=== PATIENT | male | born 1955 | race Caucasian/White ===

== ENCOUNTER 2024-11-08 13:13 | Outpatient (CLI) | payer MEDICARE, OTHER, SELFPAY ==
--- NOTE | 2024-11-08 13:19 | XR_ITS ---
WS: [email or web address] Exam: XR knee LT 3V* [id number] Date/Time of Exam: 11/08/2024 1:19 PM Reason For Exam: bilateral knee pain No fracture. The joint compartments are preserved. No joint effusion. Soft tissues are unremarkable. XR/XR knee LT 3V* [id number] IMPRESSION: 1. Negative LEFT knee.
--- NOTE | 2024-11-08 13:19 | XR_ITS ---
WS: [email or web address] Exam: XR ankle LT min 3V* [id number] Date/Time of Exam: 11/08/2024 1:19 PM Reason For Exam: left ankle pain No acute fracture. The ankle mortise is equidistant. Normal soft tissues. XR/XR ankle LT min 3V* [id number] IMPRESSION: 1. Negative LEFT ankle.
--- NOTE | 2024-11-08 13:19 | XR_ITS ---
WS: [email or web address] Exam: XR knee RT 3V* [id number] Date/Time of Exam: 11/08/2024 1:19 PM Reason For Exam: bilateral knee pain No fracture. The joint compartments are preserved. No joint effusion. Normal soft tissues. XR/XR knee RT 3V* [id number] IMPRESSION: 1. Normal RIGHT knee.
--- NOTE | 2024-11-08 13:19 | XR_ITS ---
WS: [email or web address] Exam: XR ankle RT min 3V* [id number] Date/Time of Exam: 11/08/2024 1:19 PM Reason For Exam: right ankle pain There is advanced degenerative change of the ankle mortise with [id number] articulation. There is extensive subcortical cyst formation in the talar dome. No fracture. Normal soft tissues. Marked DJD at the posterior subtalar joint. IMPRESSION1. 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
== END 2024-11-08 13:14 | disposition home or self-care (01) ==
LOC: RAD 13:15
PROVIDERS: PCP Family Medicine; Visit Provider Family Medicine
DX: M19.071 Primary osteoarthritis, right ankle and foot (principal); M85.671 Other cyst of bone, right ankle and foot; M25.572 Pain in left ankle and joints of left foot; M25.561 Pain in right knee; M25.562 Pain in left knee
CPT/HCPCS: 73562; 73610; 80053; 83036; 85025; 85651; 86038; 86140; 86200; 86431

== ENCOUNTER → 2024-12-24 08:44 | Outpatient (BNVA) | payer MEDICARE, OTHER, SELFPAY | PROVIDERS: PCP Family Medicine; Visit Provider Podiatrist Foot & Ankle Surgery | DX: M19.171 Post-traumatic osteoarthritis, right ankle and foot (principal) | CPT/HCPCS: 99204 ==

== ENCOUNTER 2025-02-06 02:34 | Emergency (ER) | payer MEDICARE, OTHER, SELFPAY ==
--- NOTE | 2025-02-06 02:36 | XRR_ITS ---
PROCEDURE INFORMATION: Exam: XR Chest Exam date and time: 02/06/2025 3:00 AM Age: 69 years old Clinical indication: Shortness of breath; Additional info: SOB TECHNIQUE: Imaging protocol: Radiologic exam of the chest. Views: 1 view. COMPARISON: No relevant prior studies available. FINDINGS: Lungs: Unremarkable. No consolidation. Pleural spaces: Unremarkable. No pleural effusion. No pneumothorax. Heart/Mediastinum: Unremarkable. No cardiomegaly. Vasculature: Atherosclerotic changes of the aorta are noted. Bones/joints: Unremarkable. XR/XR chest 1V portable [id number] IMPRESSION: No acute findings.
[2025-02-06 02:39] VITALS: BP 127/108; PULSE 71; RESP 20; TEMP 36.3; O2SAT 96; BMI 26.4
--- OUTSIDE RECORDS SUMMARY | 2025-02-06 02:41 | XMS_ITS | Encounter Summary ---
Author Organization [facility] Address [address] [place] [address] Care Team Providers Care Pan Washer Hand Name Role Phone Terence Xiao DO Primary Care Provider +1- [phone] Encounter Details Date Type Department Care Team (Latest Contact Info) Description 08/03/2000 Outpatient [facility] Dermatology- [facility] [address] [place] [id number] Hosea Muro MD NO ADDRESS ON FILE Actinic keratosis (Primary Dx); Other psoriasis Social History Tobacco Use Types Packs/Day Years Used Date Smoking Tobacco: Never Assessed Sex and Gender Information Value Date Recorded Sex Assigned at Not on file 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
--- OUTSIDE RECORDS SUMMARY | 2025-02-06 02:41 | XMS_ITS | Clinical Summary ---
Author Organization [facility] Address [address] [place] [address] Care Team Providers Care Cream Dumper Name Role Phone Terence Xiao DO Primary Care Provider +1- [phone] Medications amLODIPine (NORVASC) 10 mg tablet Take 10 mg by mouth daily. Active valsartan-hydro CHLOROthiazide (DIOVAN HCT) 320-25 mg tablet Take 1 Tablet by mouth daily. Active ECHINACEA ORAL Take by mouth. Active OTHER Provider please include Medication name, dose, route and frequency . Active OTHER Provider please include Medication name, dose, route and frequency . Active OTHER Prednisolone 1%, Gatifloxacin 0.5%, Ketorolac 0.5%. Start 3 days before surgery 1 drop 3 times a day in the surgical eye for 24 days.. 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, stage 4 02/22/2017 Overview (04/04/2017): Pars plana vitrectomy with Internal Limiting Membrane peel and C3F8 gas: 04/04/2017 Early stage nonexudative age -related macular degeneration of both eyes 02/22/2017 Social History Tobacco Use Types Packs/Day Years Used Date Smoking Tobacco: Former Cigarettes Smokeless Tobacco: Never Alcohol Use Standard Drinks/Week Comments Not Asked 2 (1 standard drink = 0.6 oz pur e alcohol) Sex and Gender Information Value Date Recorded Sex Assigned at Not on file 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 Gender Identity Not on file Sexual Orientation Not on file Last Filed Vital Signs Vital Sign Reading Time Taken Comments Blood Pressure 130/82 01/16/2018 1:49 PM CDT Pulse 77 01/16/2018 12:08 PM CDT Temperature 36.7 C (98 F) 01/16/2018 12:08 PM CDT Respiratory Rate 16 01/16/2018 12:08 PM CDT Oxygen Saturation 100% 01/16/2018 12:08 PM CDT Inhaled Oxygen Concentration - - Weight 95.3 kg (210 lb) 01/16/2018 1:49 PM CDT Height 180.3 cm (5' 11 ) 01/16/2018 1:49 PM CDT Body Mass Index 29.29 01/16/2018 1:49 PM CDT Plan of Treatment Health Maintenance Due Date Last Done Comments DTAP/TDAP/TD VACCINES (1 - Tdap) 1972 COLORECTAL SCREENING 1998 Colorectal Cancer Screening 1998 FIT-DNA Q 3 years 1998 FIT/FOBT Q 1 year 1998 Flex Sig/CT Colonography Q 5 years 1998 PNEUMOCOCCAL VACCINE 50+ YEARS (1 of 1 - PCV) 11/03/19 04 ZOSTER VACCINE (1 of 2) 11/03/2003 INFLUENZA VACCINE (#1) 2024 RSV VACCINE (60+ or ) (1 - 1-dose 75+ series) 2028 Medical Devices Implanted Type Area Kickboxing Instructor Device Identifier Shelf Expiration Date Model / Serial / Lot Lens Io Tecnis 4.5cyl [id number] 08.5 - [id number] Implanted:Qty: 1 on 01/16/2018 by Daniel Caal MD at [facility] Right: Eye [employer] 07/14/2021 [id number] 08.5 / [id number] / Insurance [employer] Advance Directives For more information, please contact: [phone] * Full Code (Latest Code Status on File) Date Activated Date Inactivated Comments 01/16/2018 10:53 AM 01/16/2018 2:20 PM Care Teams Cream Dumper Relationship Specialty Start Date End Date Terence Xiao DO [address] [place] [address] PCP - General Family Practice 03/28/17
--- OUTSIDE RECORDS SUMMARY | 2025-02-06 02:41 | XMS_ITS | Clinical Summary ---
Author Organization [facility] Address [address] [place]: [place] [address] Care Team Providers Care Fiber Optic Assembly Worker Name Role Phone Terence Xiao DO Primary Care Provider +1- [phone] Medications OTHER Prednisolone 1%, Gatifloxacin 0.5%, Ketorolac 0.5%. Start 3 days before surgery 1 drop 3 times a day in the surgical eye for 24 days.. 3.5 mL 1 8 Active ECHINACEA ORAL Take by mouth. 7 Active valsartan-hydro CHLOROthiazide (DIOVAN HCT) 320-25 mg tablet Take 1 Tablet by mouth daily. 7 Active amLODIPine (NORVASC) 10 mg tablet Take 10 mg by mouth daily. 7 Active OTHER Provider please include Medication name, dose, route and frequency . 7 Active OTHER Provider please include Medication name, dose, route and frequency . 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 Age-related nuclear cataract, bilateral 12/12/19 18 Full thickness macular hole of right eye, stage 4 02/22/2017 Overview (09/10/2020): Pars plana vitrectomy with Internal Limiting Membrane peel and C3F8 gas: 04/04/2017 Early stage nonexudative age -related macular degeneration of both eyes 02/22/2017 Social History Tobacco Use Types Packs/Day Years Used Date Smoking Tobacco: Former Smokeless Tobacco: Never Alcohol Use Standard Drinks/Week Comments Not Asked 2 (1 standard drink = 0.6 oz pur e alcohol) Sex and Gender Information Value Date Recorded Sex Assigned at Not on file 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 Gender Identity Not on file Sexual Orientation Not on file Last Filed Vital Signs Vital Sign Reading Time Taken Comments Blood Pressure 130/82 01/16/2018 1:49 PM CDT Pulse 77 01/16/2018 12:08 PM CDT Temperature 36.7 C (98 F) 01/16/2018 12:08 PM CDT Respiratory Rate 16 01/16/2018 12:08 PM CDT Oxygen Saturation - - Inhaled Oxygen Concentration - - Weight 95.3 [...] series) 2028 Medical Devices Implanted Type Area Assistant Head Cashier Device Identifier Shelf Expiration Date Model / Serial / Lot Lens Io Tecnis 4.5cyl [id number] 08.5 - [id number] Implanted:Qty: 1 on 01/16/2018 by Daniel Caal MD Eye Right: Eye [employer] 07/14/2021 [id number] 08.5 / [id number] / Care Teams Fiber Optic Assembly Worker Relationship Specialty Start Date End Date Terence Xiao DO [address] [place] [id number] PCP - General Family Practice 03/28/17
--- NOTE | 2025-02-06 02:44 | CTR_ITS ---
PROCEDURE INFORMATION: Exam: CT Head Without Contrast Exam date and time: 02/06/2025 2:55 AM Age: 69 years old Clinical indication: Injury or trauma; Fall; Blunt trauma (contusions or hematomas) TECHNIQUE: Imaging protocol: Computed tomography of the head without contrast. Radiation optimization: All CT scans at this facility use at least one of these dose optimization techniques: automated exposure control; mA and/or kV adjustment per patient size (includes targeted exams where dose is matched to clinical indication); or iterative reconstruction. COMPARISON: No relevant prior studies available. RADIATION DOSE METRICS: Total DLP (mGy-cm): 1276.78 FINDINGS: Brain: Ill-defined hypoattenuation in the right basal ganglia (series 7, image 32). Focal hypoattenuation within the left cerebral peduncle (series 7 image 23). Otherwise, guillen-white differentiation is preserved. No acute intracranial hemorrhage. Cerebral volume loss is noted, likely age related. Cerebral ventricles: Ex vacuo ventricular dilatation is noted. Paranasal sinuses: Visualized sinuses are unremarkable. No fluid levels. Mastoid air cells: Visualized mastoid air cells are well aerated. Orbital cavities: Bilateral cataract extractions are noted. Bones: Unremarkable. No acute fracture. Soft tissues: Unremarkable. CT/CT head wo con* [id number] IMPRESSION: 1. 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 Focal hypoattenuation in the left cerebral peduncle, which may be artifactual or ambulatory services representative of age-indeterminate, chronic appearing infarct. 2. No acute intracranial hemorrhage.
--- NOTE | 2025-02-06 02:44 | ECG_ITS ---
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1955 Requested By: Herrera Engel Order Number: [id number] Reading MD: EMELY MCNEAL Measurements Intervals [place] Rate: 67 P: 66 RI: 192 QRS: 22 QRSD: 156 T: 101 QT: 431 QTc: 455 Interpretive Statements SINUS RHYTHM RIGHT BUNDLE BRANCH BLOCK [120+ ms QRS DURATION, UPRIGHT V1, 40+ ms S IN I/aVL/V4/V5/V6] MODERATE T-WAVE ABNORMALITY, CONSIDER LATERAL ISCHEMIA [-0.1+ mV T-WAVE IN I/aVL/V5/V6] No previous ECG available for comparison Electronically Signed On 02-08-2025 21:37:38 CDT by EMELY MCNEAL [email or web address]
[2025-02-06 02:45] VITALS: BP 127/108; PULSE 80; O2SAT 95
[2025-02-06 02:54] LABS: Hematocrit 40.2 % (37-53); Hemoglobin 14.40 g/dL (11.27-16.99); Mean Corpuscular HGB Conc 35.8 g/dL (30-55); Mean Corpuscular Hemoglobin 32.7 pg (27-33); Mean Corpuscular Volume 91.2 fl (82-101); Nucleated Red Blood Cells % 0 %; Platelet Count 186 10^3/cmm (157-399); Red Blood Count 4.41 10^6/uL (3.85-5.65); White Blood Count 5.00 10^3/uL (3.29-11.43)
--- NOTE | 2025-02-06 02:58 | W.ED.SYNCOPE ---
HPI - Syncope General: Chief Complaint: Syncope Stated Complaint: Fell/passing out, SOB Time Seen by Provider: 02/06/25 02:37 Source: patient Mode of arrival: ambulatory Limitations: no limitations History of Present Illness: 69-year-old male family found the floor he states that he thinks he had passed out. Family states they last seen him last night at 7 PM feeling this morning roughly 130 on the floor. He states he does not member exactly what happened remembers passing out and hitting his head he has a mild headache and he states he is slightly confused at first but now is answering questions here appropriately with no focal deficits. Related Data Home Medications ?Medication ?Instructions ?Recorded ?Confirmed hydrochlorothiazide 25 mg tablet 25 mg PO DAILY 11/08/24 12/24/24 losartan 100 mg tablet 100 mg PO DAILY 11/08/24 12/24/24 Previous Rx's ?Medication ?Instructions ?Recorded albuterol sulfate 90 mcg/actuation 2 puff inhalation Q6H PRN 08/06/23 aerosol inhaler shortness of breath or wheezing #8.5 grams amlodipine 10 mg tablet 10 mg PO DAILY #90 tabs 11/08/24 meloxicam 15 mg tablet 15 mg PO DAILY #30 tabs 12/24/24 Allergies Allergy/AdvReac Type Severity Reaction Status Date / Time celecoxib (From Celebrex) Allergy Intermediate rash Verified 12/24/24 08:46 Review of Systems Card: Reports: syncope [facility] PFSH: Medical History Broken ankle Bilateral Surgical History History of appendectomy Family History Grandfather Dementia Mother Aneurysm Father Colon cancer Social History Smoking and tobacco/nicotine status: former use of tobacco/nicotine Alcohol intake: current Alcohol intake frequency: few times a week Alcohol type: wine Substance/Drug Use: never Physical Exam Const: COMMON NORMALS: patient oriented x3 OTHER: Smells of alcohol HENMT: COMMON NORMALS: normocephalic and atraumatic HEAD & SCALP: normocephalic and atraumatic Eye: COMMON NORMALS: Equal, round and reactive pupils present and EOMs intact bilaterally PUPIL: Yes Equal, round and reactive pupils present Neck/C-Spine: COMMON NORMALS: full ROM and supple Chest: COMMONS NORMALS: normal inspection of the chest and normal palpation of entire chest wall Resp: COMMON NORMALS: normal respiratory effort, No retractions, No use of accessory muscles and clear to auscultation bilaterally AUSCULTATION: clear to auscultation bilaterally Cardio: COMMON NORMALS: regular rate, regular rhythm and No murmurs present (Cardio) RATE: regular rate RHYTHM: regular rhythm GI: COMMON NORMALS: Normal to inspection, nondistended, normoactive bowel sounds present, Soft to palpation, non-tender and no masses PALPATION: Yes Soft to palpation Extremity: COMMON NORMALS: normal to inspection and full ROM Neuro: COMMON NORMALS: patient oriented x3, moves all extremities and no focal motor deficits Psych: COMMON NORMALS: mental status grossly normal, Normal thought process present and cooperative THOUGHT PROCESS: Normal thought process present Skin: COMMON NORMALS: no rashes or lesions noted and no wounds GENERAL SKIN EXAM: no rashes or lesions noted Course Vital Signs: Vital signs: Vital Signs Temperature 97.4 F L 02/06/25 02:39 Pulse Rate 73 02/06/25 03:17 Respiratory Rate 20 H 02/06/25 02:39 Blood Pressure 122/67 02/06/25 03:17 Pulse Oximetry 96 02/06/25 03:17 Oxygen Delivery Me thod Room Air 02/06/25 03:17 MDM - Syncope Medical Decision Making Patient presents here after being found altered at home. Patient awake and alert here with no focal deficits. He is intoxicated his alcohol is 299. He has no signs of infection head CT is normal no signs of stroke or hemorrhage. I did inform family and patient and findings he is stable for discharge follow-up PCP return if worsening Medical Records I reviewed the patient's medical records. Lab Data I reviewed the patient's lab results. 02/06/25 02:44 02/06/25 02:44 Radiology Impressions Chest X-Ray 02/06/25 02:36 IMPRESSION: No acute findings. Head CT 02/06/25 02:44 IMPRESSION: 1. 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 Focal hypoattenuation in the left cerebral peduncle, which may be artifactual or chain sales representative of age-indeterminate, chronic appearing infarct. 2. No acute intracranial hemorrhage. Laboratory Results WBC 5.00 10^3/uL (3.29-11.43) 02/06/25 02:44 RBC 4.41 10^6/uL (3.85-5.65) 02/06/25 02:44 Hgb 14.40 g/dL (11.27-16.99) 02/06/25 02:44 Hct 40.2 % (37-53) 02/06/25 02:44 MCV 91.2 fl (82-101) 02/06/25 02:44 MCH 32.7 pg (27-33) 02/06/25 02:44 MCHC 35.8 g/dL (30-55) 02/06/25 02:44 RDW 11.4 % (12.1-15.1) L 02/06/25 02:44 Plt Count 186 10^3/cmm (157-399) 02/06/25 02:44 MPV 9.4 fL (7.4-10.4) 02/06/25 02:44 Neut % (Auto) 54.4 % 02/06/25 02:44 Lymph % (Auto) 19.0 % 02/06/25 02:44 [place] % (Auto) 18.2 % 02/06/25 02:44 Eos % (Auto) 6.8 % 02/06/25 02:44 Baso % (Auto) 1.0 % 02/06/25 02:44 Neut # (Auto) 2.72 10^3/uL (1.8-7.7) 02/06/25 02:44 Lymph # (Auto) 1.0 10^3/uL (0.8-4.8) 02/06/25 02:44 [place] # (Auto) 0.9 10^3/uL (0.2-0.9) 02/06/25 02:44 Eos # (Auto) 0.3 10^3/uL (0.0-0.8) 02/06/25 02:44 Baso # (Auto) 0.1 10^3/uL (0.0-0.1) 02/06/25 02:44 Nucleated RBC % (auto) 0 % 02/06/25 02:44 Nucleated RBCs # 0.0 /100WBC 02/06/25 02:44 Sodium 134 mmol/L (136-145) L 02/06/25 02:44 Potassium 3.1 mmol/L (3.5-5.1) L 02/06/25 02:44 Chloride 95 mmol/L (98-107) L 02/06/25 02:44 Carbon Dioxide 22 mmol/L (22-29) 02/06/25 02:44 Anion Gap 20.1 (5-19) H 02/06/25 02:44 BUN 20 mg/dL (8-23) 02/06/25 02:44 Creatinine 0.9 mg/dL (0.7-1.2) 02/06/25 02:44 GFR Calculation Not Reportable 02/06/25 02:44 Glucose 106 mg/dL (65-115) 02/06/25 02:44 Calculated Osmolality 281 mOsm/kg (285-295) L 02/06/25 02:44 Calcium 10.0 mg/dL (8.5-10.5) 02/06/25 02:44 Total Bilirubin 0.6 mg/dL (0.15-1.2) 02/06/25 02:44 AST 124 U/L (0-40) H 02/06/25 02:44 ALT 108 U/L (0-41) H 02/06/25 02:44 Alkaline Phosphatase 77 U/L (40-130) 02/06/25 02:44 Troponin T Baseline 12 ng/L (0-15) 02/06/25 02:44 NT-Pro-B Natriuret Pep < 36 pg/mL (0-125) 02/06/25 02:44 Total Protein 8.1 g/dL (6.6-8.7) 02/06/25 02:44 Albumin 4.3 g/dL (3.5-5.2) 02/06/25 02:44 Globulin 3.8 g/dL (1.3-4.6) 02/06/25 02:44 Ethyl Alcohol 299 mg/dL (0-10) H 02/06/25 02:44 All radiology interpretation(s) finalized by discharge EKG Data EKG 1: I personally reviewed and interpreted this EKG as follows: EKG interpretation date: 02/06/25 EKG interpretation time: 02:44 Interpretation: nsr hr [address] elevation qrs 156 qtc 446 Discharge Plan Discharge Patient Disposition: Home Clinical Impression: Alcohol intoxication Condition: Stable Prescriptions: No Action albuterol sulfate 90 mcg/actuation HFA aerosol inhaler 2 puff inhalation Q6H PRN (Reason: shortness of breath or wheezing) Qty: 8.5 0RF hydrochlorothiazide 25 mg tablet 25 mg PO DAILY losartan 100 mg tablet 100 mg PO DAILY amlodipine 10 mg tablet 10 mg PO DAILY Qty: 90 0RF meloxicam 15 mg tablet 15 mg PO DAILY Qty: 30 0RF Discharge Orders: Discharge ED (Routine); Ordered 02/06/25 Ordered By: Herrera Engel Referrals: [place] Raines DO [Primary Care Provider, Family Practice] - 4-7 days Discharge Diet: Advance as tolerated Discharge Activity: Resume usual activity Patient Instructions: Alcohol Intoxication (ED) Print Language: Niuean Coding Level of Care Code ED Recovery Agent for Isaak Arndt
[2025-02-06 03:13] LABS: Troponin(5th) Baseline 12 ng/L (0-15)
[2025-02-06 03:16] LABS: Alanine Aminotransferase 108 U/L (0-41); Albumin Level 4.3 g/dL (3.5-5.2); Alcohol Level 299 mg/dL (0-10); Alkaline Phosphatase 77 U/L (40-130); Anion Gap 20.1 (5-19); Aspartate Amino Transferase 124 U/L (0-40); Blood Urea Nitrogen 20 mg/dL (8-23); Calcium 10.0 mg/dL (8.5-10.5); Carbon Dioxide 22 mmol/L (22-29); Chloride 95 mmol/L (98-107); Creatinine Clr Calc Pharmacy 84.8159; Globulin 3.8 g/dL (1.3-4.6); Glucose 106 mg/dL (65-115); Osmolality Calculated 281 mOsm/kg (285-295); Potassium 3.1 mmol/L (3.5-5.1); Sodium 134 mmol/L (136-145); Total Protein 8.1 g/dL (6.6-8.7)
[2025-02-06 03:17] VITALS: BP 122/67; PULSE 73; O2SAT 96
[2025-02-06 03:30] VITALS: BP 122/67; PULSE 74; O2SAT 99
[2025-02-06 03:56] LABS: NT Pro B Type Natriuretic Pept < 36 pg/mL (0-125)
[2025-02-06 04:10] VITALS: PULSE 74; O2SAT 98
== END 2025-02-06 04:16 | disposition home or self-care (01) ==
PROVIDERS: Emergency Provider Emergency Medicine; PCP Family Medicine
DX: F10.129 Alcohol abuse with intoxication, unspecified (principal); Y90.8 Blood alcohol level of 240 mg/100 ml or more; Z87.891 Personal history of nicotine dependence
CPT/HCPCS: 70450; 71045; 80053; 80307; 83880; 84484; 85025; 93005; 99285